=== PATIENT | female | born 1990 | race Caucasian/White ===

== ENCOUNTER 2023-09-04 08:24 | Inpatient (IN) | payer OTHER, SELFPAY ==
[2023-09-04 03:40] VITALS: BP 120/83
[2023-09-04] MEDS: PENICILLIN 110 UNITS IV (04:07)
[2023-09-04] MEDS: LR 1000 IV (04:07)
[2023-09-04 04:10] LABS: % Basophils 0.5 % (0-2); % Eosinophils 0.2 % (0-6); % Immature Granulocytes 0.4 % (0-0.5); % Lymphocytes 13.9 % (20.5-51.1); % Monocytes 4.9 % (1.7-9.3); % Neutrophils 80.1 % (42.2-75.2); Absolute Basophils 0.1 10^3/uL (0-0.2); Absolute Lymphocytes 1.3 10^3/uL (1.2-3.4); Absolute Monocytes 0.5 10^3/uL (0.1-0.6); Absolute Neutrophils 7.3 10^3/uL (1.4-6.5); Hematocrit 36.2 % (37.0-47.0); Hemoglobin 12.4 g/dL (12.0-16.0); Mean Corp Hgb Conc. 34.3 g/dL (33.0-37.0); Mean Corpuscular Hgb 29.3 pg (27.0-31.0); Mean Corpuscular Volume 85.6 fL (81.0-99.0); Mean Platelet Volume 9.8 fL (7.4-10.4); Nucleated Red Blood Cells % 0 %; Platelet Count 194 10^3/uL (130-400); Red Blood Cell Count 4.23 10^6/uL (4.20-5.40); Red Cell Dist. Width 13.1 % (11.5-14.5); White Blood Cell Count 9.1 10^3/uL (4.8-10.8)
[2023-09-04] MEDS: PENICILLIN 55 UNITS IV (07:58)
[2023-09-04] MEDS: PITOCIN 30 UNITS/NSS 500 ML IV (08:07)
[2023-09-04] MEDS: XYLOCAINE-MPF 1% VIAL 30 ML INFIL (08:07)
[2023-09-04] MEDS: MOTRIN 600 MG PO ×3 (08:45→21:43)
[2023-09-04] MEDS: TYLENOL 650 MG PO ×2 (15:18→21:43)
[2023-09-04 15:35] LABS: Syphilis/T. pallidum Ab Reflex Negative (Negative)
[2023-09-05] MEDS: MOTRIN 600 MG PO ×3 (05:42→20:28)
[2023-09-05] MEDS: TYLENOL 650 MG PO (05:43)
[2023-09-06] MEDS: MOTRIN 600 MG PO ×2 (02:33→07:58)
== END 2023-09-06 09:26 | disposition home or self-care (01) | DRG 807 ==
LOC: LDRP 08:24
PROVIDERS: ADMITTING PHYSICIAN Advanced Practice Midwife; FAMILY PHYSICIAN Family Medicine
PROC: 6A550ZT Pheresis of Cord Blood Stem Cells, Single (ICD-10-PCS; 2023-09-04)
PROC: 0UQMXZZ Repair Vulva, External Approach (ICD-10-PCS; 2023-09-04)
PROC: 10E0XZZ Delivery of Products of Conception, External Approach (ICD-10-PCS; 2023-09-04)
DX: O99.824 Streptococcus B carrier state complicating childbirth (principal); Z37.0 Single live birth; O71.82 Other specified trauma to perineum and vulva; Z3A.39 39 weeks gestation of pregnancy; L63.9 Alopecia areata, unspecified; Z80.3 Family history of malignant neoplasm of breast; Z80.8 Family history of malignant neoplasm of other organs or systems
CPT/HCPCS: 36415; 85025; 86780; 86850; 86900; 86901